=== PATIENT | male | born 1985 | race African-American/Black ===

== ENCOUNTER 2017-02-01 13:30 | Emergency (ER) | payer OTHER ==
[2017-02-01 13:45] VITALS: BP 149/82
--- NOTE | 2017-02-01 14:53 | ER Document Report ---
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 He states he was seen here in 2014 and at that time he had heart catheterizations and echoes. He states he was told that he did not have a heart attack. He states he was told he had arthritis. He states he has had flareups of this since then that have been treated with methotrexate and prednisone. He states he is not currently taking any medications. He states that he was seen up in [facility] at the [facility] for this. He states that they told him if he had any further problems to go to the local [place]. Today he states began to have [facility] TRAVEL OUTSIDE OF THE [place] IN LAST 30 DAYS: No - Related Data Allergies/Adverse Reactions: No Known Allergies Allergy (Verified 02/01/17 13:44) Past Medical History - Social History Chew tobacco use (# tins/day): No Frequency of alcohol use: None Drug Abuse: None Pulmonary Medical History: Reports: Hx Bronchitis Neurological Medical History: Reports: Hx Migraine Renal/ Medical History: Denies: Hx Peritoneal Dialysis Musculoskeltal Medical History: Reports Hx Musculoskeletal Deformity, Reports Hx Musculoskeletal Trauma Psychiatric Medical History: Denies: Hx Depression Past Surgical History: Reports: Hx Orthopedic Surgery - R ankle, L thumb, L wrist. - Immunizations Hx Diphtheria, Pertussis, Tetanus Vaccination: No History of Influenza Vaccine for 01/2017 - 06/2017 Season: No Physical Exam - Vital signs Vitals: Temp Pulse Resp BP Pulse Ox 98.5 F 68 20 149/82 H 97 02/01/17 13:43 02/01/17 13:43 02/01/17 13:43 02/01/17 13:43 02/01/17 13:43 Course - Vital Signs Vital signs: Temp Pulse Resp BP Pulse Ox 98.5 F 68 20 149/82 H 97 02/01/17 13:43 02/01/17 13:43 02/01/17 13:43 02/01/17 13:43 02/01/17 13:43
[2017-02-01 14:59] LABS: ABSOLUTE LYMPHOCYTES (AUTO) 1.5 10^3/uL (0.5-4.7); ABSOLUTE MONOCYTES (AUTO) 0.5 10^3/uL (0.1-1.4); ABSOLUTE NEUT (AUTO) 2.3 10^3/uL (1.7-8.2); HEMATOCRIT 42.7 % (37.9-51.0); HEMOGLOBIN 14.4 g/dL (13.5-17.0); HGB HCT DIFFERENCE 0.5; MEAN CORPUSCULAR HEMOGLOBIN 27.5 pg (27.0-33.4); MEAN CORPUSCULAR HGB CONC 33.7 g/dL (32.0-36.0); MEAN CORPUSCULAR VOLUME 82 fl (80-97); MONOCYTES % (AUTO) 10.9 % (3-13); RED BLOOD COUNT 5.22 10^6/uL (4.35-5.55); RED CELL DISTRIBUTION WIDTH 12.1 % (11.5-14.0); SEGMENTED NEUTROPHILS % (AUTO) 53.1 % (42-78); WHITE BLOOD COUNT 4.3 10^3/uL (4.0-10.5)
--- NOTE | 2017-02-01 15:08 | RADIOLOGY REPORT (SQ) ---
EXAM DESCRIPTION: CHEST PA/LAT COMPLETED DATE/TIME: 02/01/2017 3:01 pm REASON FOR STUDY: pain COMPARISON: 03/06/2015 EXAM PARAMETERS: NUMBER OF VIEWS: two views TECHNIQUE: Digital Frontal and Lateral radiographic views of the chest acquired. RADIATION DOSE: NA LIMITATIONS: none FINDINGS: LUNGS AND PLEURA: No opacities, masses or pneumothorax. No pleural effusion. MEDIASTINUM AND HILAR STRUCTURES: No masses or contour abnormalities. HEART AND VASCULAR STRUCTURES: Heart normal size. No evidence for failure. BONES: No acute findings. HARDWARE: None in the chest. OTHER: No other significant finding. IMPRESSION: NO SIGNIFICANT RADIOGRAPHIC FINDING IN THE CHEST. TECHNICAL DOCUMENTATION: JOB ID: [id number]- All Rights Reserved
[2017-02-01 15:12] LABS: ALANINE AMINOTRANSFERASE 29 U/L (21-72); ALBUMIN 3.9 g/dL (3.5-5.0); ALKALINE PHOSPHATASE 67 U/L (38-126); ANION GAP 8 (5-19); ASPARTATE AMINO TRANSFERASE 19 U/L (17-59); BILIRUBIN,DIRECT 0.4 mg/dL (0.0-0.4); BILIRUBIN,TOTAL 0.6 mg/dL (0.2-1.3); BLOOD UREA NITROGEN 18 mg/dL (7-20); CALCIUM 9.1 mg/dL (8.4-10.2); CARBON DIOXIDE 30 mmol/L (22-30); CHLORIDE 104 mmol/L (98-107); CREATININE RESULT 1.35 mg/dL (0.52-1.25); GLUCOSE 86 mg/dL (75-110); POTASSIUM 4.8 mmol/L (3.6-5.0); SODIUM 142.4 mmol/L (137-145); TOTAL PROTEIN 6.6 g/dL (6.3-8.2)
--- NOTE | 2017-02-01 15:24 | EKG REPORT ---
SEVERITY:- BORDERLINE ECG - SINUS RHYTHM BORDERLINE T WAVE ABNORMALITIES : Confirmed by: Tahira Hammonds 01-Feb-2017 15:24:03
--- NOTE | 2017-02-01 15:51 | ER Document Report ---
ED Cardiac - General Chief Complaint: Chest Pain Stated Complaint: CHEST PAIN Time Seen by Provider: 02/01/17 14:32 Mode of Arrival: Ambulatory Information source: Patient Notes: Patient reports left-sided chest pressure and some mild shortness of breath with exertion. He states this feels exactly like his previous pericarditis flareups. He states the pain is worse when he leans backwards and better when he leans forward. It is constant. He has mild to moderate. There is no radiation of the symptoms. No cough cold or congestion. He states previously he has been given prednisone or methotrexate for flareups. He states he is usually followed by the [facility]. TRAVEL OUTSIDE OF THE [place] IN LAST 30 DAYS: No - Related Data Allergies/Adverse Reactions: No Known Allergies Allergy (Verified 02/01/17 13:44) Past Medical History - General Information source: Patient - Social History Smoking Status: Never Smoker Chew tobacco use (# tins/day): No Frequency of alcohol use: None Drug Abuse: None Family History: Reviewed & Not Pertinent Patient has suicidal ideation: No Patient has homicidal ideation: No Pulmonary Medical History: Reports: Hx Bronchitis Neurological Medical History: Reports: Hx Migraine Renal/ Medical History: Denies: Hx Peritoneal Dialysis Musculoskeltal Medical History: Reports Hx Musculoskeletal Deformity, Reports Hx Musculoskeletal Trauma Psychiatric Medical History: Denies: Hx Depression Past Surgical History: Reports: Hx Orthopedic Surgery - R ankle, L thumb, L wrist. - Immunizations Hx Diphtheria, Pertussis, Tetanus Vaccination: No Review of Systems - Review of Systems Constitutional: denies: Chills, Fever Cardiovascular: Chest pain. denies: Palpitations Respiratory: Short of breath. denies: Cough -: Yes All other systems reviewed and negative Physical Exam - Vital signs Vitals: Temp Pulse Resp BP Pulse Ox 98.5 F 68 20 149/82 H 97 02/01/17 13:43 02/01/17 13:43 02/01/17 13:43 02/01/17 13:43 02/01/17 13:43 Interpretation: Hypertensive - General General appearance: Appears well, Alert - HEENT Head: Normocephalic, Atraumatic Eyes: Normal Pupils: PERRL - Respiratory Respiratory status: No respiratory distress Chest status: Nontender Breath sounds: Normal Chest palpation: Normal - Cardiovascular Rhythm: Regular Heart sounds: Normal auscultation Murmur: No - Abdominal Inspection: Normal Distension: No distension Bowel sounds: Normal Tenderness: Nontender Organomegaly: No organomegaly - Back Back: Normal, Nontender - Extremities General upper extremity: Normal inspection, Nontender, Normal color, Normal ROM , Normal temperature General lower extremity: Normal inspection, Nontender, Normal color, Normal ROM , Normal temperature, Normal weight bearing. No: Caleb's sign - Neurological Neuro grossly intact: Yes Cognition: Normal Orientation: AAOx4 [place] Coma Scale Eye Opening: Spontaneous [place] Coma Scale Verbal: Oriented [place] Coma Scale Motor: Obeys Commands [place] Coma Scale Total: 15 Speech: Normal Motor strength normal: LUE, RUE, LLE, RLE Sensory: Normal - Psychological Associated symptoms: Normal affect, Normal mood - Skin Skin Temperature: Warm Skin Moisture: Dry Skin Color: Normal Course - Re-evaluation Re-evalutation: 02/01/17 15:49 I spoke with the [place] stabilizer operator. He recommended that if all laboratories are normal and exam was unremarkable the patient be started back on prednisone to follow-up at [facility]. - Vital Signs Vital signs: Temp Pulse Resp BP Pulse Ox 98.5 F 68 20 149/82 H 97 02/01/17 13:43 02/01/17 13:43 02/01/17 13:43 02/01/17 13:43 02/01/17 13:43 - Laboratory Result Diagrams: 02/01/17 14:48 02/01/17 14:48 Laboratory results interpreted by me: 02/01/17 14:48 Creatinine 1.35 H - EKG Interpretation by Ma EKG shows normal: Sinus rhythm Rate: Normal Rhythm: NSR [place]/QRS: No: Right axis deviation, Left axis deviation Discharge - Discharge Clinical Impression: Pericarditis Qualifiers: Pericarditis type: associated with rheumatoid arthritis Chronicity: acute Qualified Code(s): I30.9 - Acute pericarditis, unspecified; M06.9 - Rheumatoid arthritis, unspecified; M06.9 - Rheumatoid arthritis, unspecified; M06.9 - Rheumatoid arthritis, unspecified; M06.9 - Rheumatoid arthritis, unspecified Condition: Stable Disposition: HOME, SELF-CARE Instructions: Pericarditis ([facility]) Additional Instructions: Please call your instructional supervisor at the [facility] as soon as possible to arrange follow-up. Is very important that you do this. Your blood pressure is mildly elevated today. Please have this rechecked within 1 week by your doctor. Prescriptions: Prednisone [Deltasone 20 mg Tablet] 3 tab PO DAILY 5 Days tablet Forms: Elevated Blood Pressure
== END 2017-02-01 15:50 | disposition home or self-care (01) ==
LOC: ER 13:30
DX: I30.9 Acute pericarditis, unspecified (principal); M06.9 Rheumatoid arthritis, unspecified; R06.02 Shortness of breath
CPT/HCPCS: 36415; 71020; 80053; 84484; 85025; 93005; 93010; 99285